=== PATIENT | female | born 1950 | race Caucasian/White ===

== ENCOUNTER 2018-09-09 09:34 | Outpatient (CLI) | payer OTHER | END 2018-09-09 16:26 | disposition home or self-care (01) | LOC: MAMO-SONO 09:34 | DX: Z12.31 Encounter for screening mammogram for malignant neoplasm of breast (principal); Z87.898 Personal history of other specified conditions; C50.911 Malignant neoplasm of unspecified site of right female breast; C50.912 Malignant neoplasm of unspecified site of left female breast ==

== ENCOUNTER → 2018-10-15 | Outpatient (CLI) | payer OTHER | END | disposition home or self-care (01) | LOC: NUCLEAR 13:00 | DX: M81.0 Age-related osteoporosis without current pathological fracture (principal) ==

== ENCOUNTER 2020-01-02 11:17 | Outpatient (CLI) | payer OTHER | END 2020-01-02 11:21 | disposition home or self-care (01) | LOC: NUCLEAR 11:17 | PROVIDERS: ATTEND Internal Medicine Sports Medicine | DX: G30.8 Other Alzheimer's disease (principal); R41.3 Other amnesia | CPT/HCPCS: 78803; A9557 ==

== ENCOUNTER → 2020-05-07 | Outpatient (CLI) | payer OTHER | END | disposition home or self-care (01) | LOC: MAMO-SONO 13:45 | PROVIDERS: ATTEND Obstetrics & Gynecology | DX: Z12.31 Encounter for screening mammogram for malignant neoplasm of breast (principal); N60.11 Diffuse cystic mastopathy of right breast; N60.12 Diffuse cystic mastopathy of left breast ==

== ENCOUNTER 2021-05-08 13:00 | Outpatient (CLI) | payer OTHER | END 2021-05-08 13:10 | disposition home or self-care (01) | LOC: MAMO-SONO 13:00 | PROVIDERS: ATTEND Obstetrics & Gynecology | DX: N60.11 Diffuse cystic mastopathy of right breast (principal); N60.12 Diffuse cystic mastopathy of left breast; Z12.31 Encounter for screening mammogram for malignant neoplasm of breast ==

== ENCOUNTER 2021-08-30 07:45 | Outpatient (CLI) | payer OTHER | END 2021-08-30 07:46 | disposition home or self-care (01) | LOC: SONOGRAMA 07:45 | PROVIDERS: ATTEND Specialist | DX: N39.0 Urinary tract infection, site not specified (principal); E78.00 Pure hypercholesterolemia, unspecified; I10 Essential (primary) hypertension; N20.0 Calculus of kidney ==

== ENCOUNTER 2021-09-30 14:04 | Outpatient (CLI) | payer OTHER | END 2021-09-30 14:12 | disposition home or self-care (01) | LOC: RAD 14:04 | PROVIDERS: ATTEND Internal Medicine Sports Medicine | DX: M25.511 Pain in right shoulder (principal); S40.011A Contusion of right shoulder, initial encounter ==

== ENCOUNTER 2021-11-22 09:30 | Outpatient (CLI) | payer OTHER | END 2021-11-22 09:38 | disposition home or self-care (01) | LOC: SONOGRAMA 09:30 | PROVIDERS: ATTEND Internal Medicine Sports Medicine | DX: E04.1 Nontoxic single thyroid nodule (principal) ==

== ENCOUNTER 2021-11-28 08:43 | Outpatient (CLI) | payer OTHER | END 2021-11-28 08:45 | disposition home or self-care (01) | LOC: SONOGRAMA 08:43 | PROVIDERS: ATTEND Pathology Anatomic Pathology | DX: E04.2 Nontoxic multinodular goiter (principal) ==

== ENCOUNTER 2022-01-23 09:10 | Outpatient (CLI) | payer OTHER | END 2022-01-23 09:18 | disposition home or self-care (01) | LOC: RAD 09:10 | PROVIDERS: ATTEND Specialist | DX: M54.2 Cervicalgia (principal); M07.6 Enteropathic arthropathies; E78.00 Pure hypercholesterolemia, unspecified; I10 Essential (primary) hypertension; M81.0 Age-related osteoporosis without current pathological fracture ==

== ENCOUNTER 2022-01-23 09:49 | Outpatient (CLI) | payer OTHER | END 2022-01-23 09:51 | disposition home or self-care (01) | LOC: NUCLEAR 09:49 | PROVIDERS: ATTEND Specialist | DX: M81.0 Age-related osteoporosis without current pathological fracture (principal); M54.2 Cervicalgia; M07.611 Enteropathic arthropathies, right shoulder; M07.6 Enteropathic arthropathies; E78.00 Pure hypercholesterolemia, unspecified; I10 Essential (primary) hypertension ==

== ENCOUNTER → 2022-08-04 | Outpatient (CLI) | payer OTHER | END | disposition home or self-care (01) | LOC: MAMO-SONO 09:57 | PROVIDERS: ATTEND Family Medicine | DX: Z12.31 Encounter for screening mammogram for malignant neoplasm of breast (principal); E04.2 Nontoxic multinodular goiter; N60.11 Diffuse cystic mastopathy of right breast; N60.12 Diffuse cystic mastopathy of left breast ==

== ENCOUNTER 2022-12-29 11:48 | Outpatient (CLI) | payer OTHER | END 2022-12-29 11:56 | disposition home or self-care (01) | LOC: RAD 11:48 | PROVIDERS: ATTEND Family Medicine | DX: M79.675 Pain in left toe(s) (principal); M54.51 Vertebrogenic low back pain ==

== ENCOUNTER 2023-01-15 12:16 | Outpatient (CLI) | payer OTHER | END 2023-01-15 12:23 | disposition home or self-care (01) | LOC: MRI 12:16 | PROVIDERS: ATTEND Family Medicine | DX: M51.16 Intervertebral disc disorders with radiculopathy, lumbar region (principal) | CPT/HCPCS: 72148 ==

== ENCOUNTER 2023-02-09 13:29 | Outpatient (CLI) | payer OTHER | END 2023-02-09 13:30 | disposition home or self-care (01) | LOC: NUCLEAR 13:29 | PROVIDERS: ATTEND Family Medicine | DX: M81.0 Age-related osteoporosis without current pathological fracture (principal) ==

== ENCOUNTER 2023-07-13 10:41 | Outpatient (CLI) | payer OTHER | END 2023-07-13 10:50 | disposition home or self-care (01) | LOC: MAMO-SONO 10:41 | PROVIDERS: ATTEND Obstetrics & Gynecology | DX: N60.11 Diffuse cystic mastopathy of right breast (principal); N60.12 Diffuse cystic mastopathy of left breast; Z12.31 Encounter for screening mammogram for malignant neoplasm of breast ==

== ENCOUNTER 2024-01-18 12:53 | Outpatient (CLI) | payer OTHER | END 2024-01-18 13:00 | disposition home or self-care (01) | LOC: RAD 12:53 | DX: M51.16 Intervertebral disc disorders with radiculopathy, lumbar region (principal) ==

== ENCOUNTER 2024-05-31 06:24 | Emergency (ER) | payer OTHER ==
[~2024-05-31] VITALS: Ht 157.5 cm; Wt 49.9 kg
[2024-05-31] MEDS ORDERED: COZAAR50 MG PO (06:33)
[2024-05-31] MEDS ORDERED: LIPITOR40 M1 PO (06:34)
[2024-05-31] MEDS ORDERED: ADULT LOW DOSE81 M1 (06:34)
[2024-05-31] MEDS ORDERED: DEXAMETHASONE SODIUM PHOSPHATE 4 MG/ML VIAL IM STA (08:27)
[2024-05-31] MEDS ORDERED: KETOROLAC TROMETHAMINE 30 MG VIAL IM STA (08:28)
== END 2024-05-31 10:48 | disposition home or self-care (01) ==
LOC: ER 06:26
DX: M51.26 Other intervertebral disc displacement, lumbar region (principal); I10 Essential (primary) hypertension
CPT/HCPCS: 72100; 96372; 99283; J1100; J1885

== ENCOUNTER 2024-06-01 14:24 | Outpatient (CLI) | payer OTHER ==
[~2024-06-01 14:24] MED LIST: ADULT LOW DOSE81 M1; COZAAR50 MG PO; LIPITOR40 M1 PO
== END 2024-06-01 14:30 | disposition home or self-care (01) ==
LOC: MRI 14:24
PROVIDERS: ATTEND Family Medicine
DX: M51.16 Intervertebral disc disorders with radiculopathy, lumbar region (principal)
CPT/HCPCS: 72148

== ENCOUNTER 2025-03-23 09:20 | Outpatient (CLI) | payer OTHER | END 2025-03-23 09:21 | disposition home or self-care (01) | LOC: NUCLEAR 09:20 | PROVIDERS: ATTEND Internal Medicine Sports Medicine | DX: M85.89 Other specified disorders of bone density and structure, multiple sites (principal); M81.0 Age-related osteoporosis without current pathological fracture ==